=== PATIENT | female | born 1935 | race Two or more races ===

== ENCOUNTER 2017-09-16 15:37 | Emergency (ER) | payer MEDICARE ==
[~2017-09-16] VITALS: Ht 149.9 cm; Wt 45.4 kg
--- NOTE | 2017-09-16 15:48 | Emergency Room Report ---
History of Present Illness General Chief Complaint: Dyspnea/Respdistress Present Illness HPI Patient is 82-year-old female who presented after increased abdominal pain and difficulty with eating. Patient had been noted to be somewhat confused. History is limited by patient's mental status. Allergies: Coded Allergies: CODEINE (Verified Allergy, Unknown, 09/16/17) Uncoded Allergies: NSAIDS (Allergy, Unknown, 09/16/17) PENICILLIN (Allergy, Unknown, 09/16/17) Patient History Past Medical History: see triage record Reviewed Nursing Documentation: PMH: Agreed, PSxH: Agreed Nursing Documentation-PMH Past Medical History Deferred: No Family Available Past Medical History: No Stated History Review of Systems All Other Systems: limited - by mental status Physical Exam Vital Signs Date Time Temp Pulse Resp B/P (MAP) Pulse Ox O2 Delivery O2 Flow Rate FiO2 09/16/17 15:39 99.5 110 14 105/45 95 Room Air 99.5 Sp02 EP Interpretation: reviewed, normal General Appearance: normal inspection, well appearing, no apparent distress, alert, Chronically Ill Head: atraumatic ENT: normal ENT inspection, hearing grossly normal, normal voice Neck: normal inspection, full range of motion, supple, no bony tend Respiratory: normal inspection, lungs clear, normal breath sounds, no respiratory distress, no retraction, no wheezing Cardiovascular #1: regular rate, rhythm, no edema Gastrointestinal: tenderness - lower abdomen Genitourinary: no CVA tenderness Musculoskeletal: normal inspection, back normal, normal range of motion Neurologic: normal inspection, alert, responsive, motor weakness Psychiatric: normal inspection, judgement/insight normal, mood/affect normal Skin: normal inspection, normal color, no rash Medical Decision Making Diagnostic Impression: Primary Impression: Abdominal pain Additional Impressions: Colitis Dementia ER Course Patient presented for abdominal pain. Differential diagnoses included ischemic bowel, appendicitis, perforated viscus, abdominal aortic aneurysm, inferior myocardial infarction, viral gastroenteritis. Because of complexity of patient' s case laboratory testing and imaging studies were ordered. Patient was noted to have diffuse tenderness. CT imaging read by radiology showed diffuses colitis and proctitis. Patient was given IV fluids and antibiotics. Laboratory was notable for elevated white blood count. Dr. Bullard from [facility] was contacted to arrange for transfer for continuity of care. Labs Test 09/16/17 15:30 09/16/17 16:30 White Blood Count 22.8 K/UL (4.8-10.8) Red Blood Count 3.09 M/UL (4.20-5.40) Hemoglobin 10.5 G/DL (12.0-16.0) Hematocrit 29.3 % (37.0-47.0) Mean Corpuscular Volume 95 FL (80-99) Mean Corpuscular Hemoglobin 34.1 PG (27.0-31.0) Mean Corpuscular Hemoglobin Concent 36.0 G/DL (32.0-36.0) Red Cell Distribution Width 12.6 % (11.6-14.8) Platelet Count 145 K/UL (150-450) Mean Platelet Volume 7.1 FL (6.5-10.1) Neutrophils (%) (Auto) % (45.0-75.0) Lymphocytes (%) (Auto) % (20.0-45.0) Monocytes (%) (Auto) % (1.0-10.0) Eosinophils (%) (Auto) % (0.0-3.0) Basophils (%) (Auto) % (0.0-2.0) Differential Total Cells Counted 100 Neutrophils % (Manual) 82 % (45-75) Lymphocytes % (Manual) 1 % (20-45) Monocytes % (Manual) 4 % (1-10) Eosinophils % (Manual) 0 % (0-3) Basophils % (Manual) 0 % (0-2) Band Neutrophils 13 % (0-8) Platelet Estimate Decreased Platelet Morphology Normal Polychromasia 1+ Hypochromasia 1+ Anisocytosis 1+ Prothrombin Time 11.5 SEC (9.30-11.50) Prothromb Time International Ratio 1.1 (0.9-1.1) Activated Partial Thromboplast Time 32 SEC (23-33) Sodium Level 128 MMOL/L (136-145) Potassium Level 5.4 MMOL/L (3.5-5.1) Chloride Level 95 MMOL/L (98-107) Carbon Dioxide Level 18 MMOL/L (21-32) Anion Gap 15 mmol/L (5-15) Blood Urea Nitrogen 69 mg/dL (7-18) Creatinine 2.5 MG/DL (0.55-1.30) Estimat Glomerular Filtration Rate mL/min (>60) Glucose Level 122 MG/DL (74-106) Calcium Level 8.7 MG/DL (8.5-10.1) Total Bilirubin 1.4 MG/DL (0.2-1.0) Direct Bilirubin 0.9 MG/DL (0.0-0.3) Aspartate Amino Transf (AST/SGOT) 28 U/L (15-37) Alanine Aminotransferase (ALT/SGPT) 13 U/L (12-78) Alkaline Phosphatase 151 U/L (46-116) Troponin I 0.247 ng/mL (0.000-0.056) Total Protein 6.3 G/DL (6.4-8.2) Albumin 2.6 G/DL (3.4-5.0) Globulin 3.7 g/dL Albumin/Globulin Ratio 0.7 (1.0-2.7) Lipase 45 U/L (73-393) Urine Color Yellow Urine Appearance Clear Urine pH 5 (4.5-8.0) Urine Specific [place] 1.015 (1.005-1.035) Urine Protein 1+ (NEGATIVE) Urine Glucose (UA) Negative (NEGATIVE) Urine Ketones Negative (NEGATIVE) Urine Occult Blood 1+ (NEGATIVE) Urine Nitrite Negative (NEGATIVE) Urine Bilirubin Negative (NEGATIVE) Urine Urobilinogen 1 MG/DL (0.0-1.0) Urine Leukocyte Esterase 1+ (NEGATIVE) Urine RBC 2-4 /HPF (0 - 2) Urine WBC 0-2 /HPF (0 - 2) Urine Squamous Epithelial Cells Few /LPF (NONE/OCC) Urine Amorphous Sediment Few /LPF (NONE) Urine Bacteria Few /HPF (NONE) EKG Diagnostic Results Rate: tachycardiac Rhythm: NSR ST Segments: no acute changes Last Vital Signs Date Time Temp Pulse Resp B/P (MAP) Pulse Ox O2 Delivery O2 Flow Rate FiO2 09/16/17 15:39 99.5 110 14 105/45 95 Room Air 99.5 Status: improved Disposition: XFER SHT-TRM HOSP Condition: Serious Sly Corrales Sep 16, 2017 15:48
[2017-09-16] MEDS ORDERED: LEVOTHYROXINE75 MCG ORAL (16:07)
[2017-09-16] MEDS ORDERED: PROTONIX40 MG ORAL (16:07)
[2017-09-16] MEDS ORDERED: ACETAMINOPHEN325 M1 ORAL (16:07)
[2017-09-16] MEDS ORDERED: SENOKOT8.6 MG PO (16:07)
[2017-09-16 16:11] LABS: HEMATOCRIT 29.3 % (37.0-47.0); HEMOGLOBIN 10.5 G/DL (12.0-16.0); MEAN CORPUSCULAR VOLUME 95 FL (80-99); PLATELET COUNT 145 K/UL (150-450); RED BLOOD COUNT 3.09 M/UL (4.20-5.40); RED CELL DISTRIBUTION WIDTH 12.6 % (11.6-14.8)
[2017-09-16 16:18] LABS: INR 1.1 (0.9-1.1)
[2017-09-16 16:22] LABS: ANION GAP 15 mmol/L (5-15); BLOOD UREA NITROGEN 69 mg/dL (7-18); CALCIUM 8.7 MG/DL (8.5-10.1); CARBON DIOXIDE 18 MMOL/L (21-32); CHLORIDE 95 MMOL/L (98-107); CREATININE 2.5 MG/DL (0.55-1.30); POTASSIUM 5.4 MMOL/L (3.5-5.1); SODIUM 128 MMOL/L (136-145)
[2017-09-16 16:28] LABS: WHITE BLOOD COUNT 22.8 K/UL (4.8-10.8)
[2017-09-16 16:32] LABS: ALANINE AMINOTRANSFERASE 13 U/L (12-78); ALBUMIN 2.6 G/DL (3.4-5.0); ALBUMIN/GLOBULIN RATIO 0.7 (1.0-2.7); ALKALINE PHOSPHATASE 151 U/L (46-116); ASPARTATE AMINO TRANSFERASE 28 U/L (15-37); BILIRUBIN,TOTAL 1.4 MG/DL (0.2-1.0)
[2017-09-16 16:40] LABS: BILIRUBIN,DIRECT 0.9 MG/DL (0.0-0.3)
[2017-09-16 17:00] VITALS: BP 116/43
[2017-09-16 17:36] LABS: APPEARANCE,URINE CLEAR; BILIRUBIN, URINE NEGATIVE (NEGATIVE); GLUCOSE, URINE (UA) NEGATIVE (NEGATIVE); KETONES,URINE NEGATIVE (NEGATIVE); LEUKOCYTE ESTERASE ,URINE 1+ (NEGATIVE); NITRITE,URINE NEGATIVE (NEGATIVE); PH,URINE 5 (4.5-8.0); PROTEIN,URINE 1+ (NEGATIVE); UROBILINOGEN,URINE 1 MG/DL (0.0-1.0)
[2017-09-16 17:37] LABS: COLOR,URINE YELLOW
[2017-09-16 18:00] VITALS: BP 109/43
[2017-09-16 19:00] VITALS: BP 111/50
[2017-09-16 19:51] VITALS: BP 140/53
[2017-09-16 21:07] VITALS: BP 130/62
[2017-09-16 22:37] VITALS: BP 130/62
--- NOTE | 2017-09-17 10:14 | Diagnostic Imaging Report ---
Indication: Abdominal pain Technique: CT of the abdomen and pelvis utilizing automated exposure control with intravenous contrast. Venous scanning performed. CT dose: Total DLP 641 mGycm; CTDI vol 13.9 mGy Comparison: None Findings: There is atelectasis in the lung bases. Heart is enlarged. There is a large hiatal hernia. Atherosclerotic changes are present. The abdominal aorta is normal in caliber. The liver appears nodular. No CT dense gallstones are identified. The bilateral adrenal glands are mildly thickened. The kidneys are grossly unremarkable. Spleen and pancreas are unremarkable. The small bowel loops are normal in caliber. There is diffuse wall thickening throughout the colon and rectum. The uterus is nonvisualized. Bladder is grossly unremarkable. There is no free intraperitoneal air. Degenerative changes of the spine are seen. Trace ascites is present. Impression: Examination limited without intravenous or oral contrast. Pancolitis may be infectious or inflammatory. Clinical correlation recommended. Nodular liver suggestive of cirrhosis. Mild ascites. Hiatal hernia. Lung base atelectasis. Cardiomegaly. Atherosclerotic changes. Absent uterus. Other findings as above. The CT scanner at [facility] is accredited by the [employer] and the scans are performed using protocols designed to limit radiation exposure to as low as reasonably achievable to attain images of sufficient resolution adequate for diagnostic evaluation.
== END 2017-09-16 22:37 | disposition short-term general hospital (02) ==
LOC: EMR 17:01
DX: K52.9 Noninfective gastroenteritis and colitis, unspecified (principal); F03.90 Unspecified dementia, unspecified severity, without behavioral disturbance, psychotic disturbance, mood disturbance, and anxiety; Z88.0 Allergy status to penicillin; Z88.5 Allergy status to narcotic agent; K44.9 Diaphragmatic hernia without obstruction or gangrene
CPT/HCPCS: 36415; 74176; 80053; 81003; 82248; 83690; 84484; 85007; 85025; 85610; 85730; 86850; 86900; 86901; 96361; 96374; 96375; 99285; J1956; J2405